=== PATIENT | male | born 1950 | race Caucasian/White ===

== ENCOUNTER 2017-07-05 21:21 | Inpatient (IN) | payer BC ==
[2017-07-05] MEDS ORDERED: NACL 0.9% 3 ML SYG IV (22:30)
[2017-07-05] MEDS ORDERED: DEXTROSE 50% 50 ML SYRINGE IV ×2 (23:45)
[2017-07-05] MEDS ORDERED: GLUCOSE GEL 15 GRAM TUBE BUCCAL (23:45)
[2017-07-05] MEDS ORDERED: GLUCAGON 1 MG INJ IM (23:45)
[2017-07-05] MEDS ORDERED: GLUCOSE GEL 15 GRAM TUBE PO ×2 (23:45)
[2017-07-06] MEDS ORDERED: INSULIN ASPART [NOVOLOG] 3 ML PEN SC ×4 (01:00→07:55)
[2017-07-06] MEDS: LEVETIRACETAM 250 MG TAB PO ×3 (01:08→12:49)
[2017-07-06] MEDS: SOD CHLORIDE 0.9% 1,000 ML IV ×2 (01:09→12:50)
[2017-07-06] MEDS ORDERED: ACCU-CHEK XX ×2 (02:00)
[2017-07-06] MEDS: ACCU-CHEK XX (02:00)
[2017-07-06] MEDS: INSULIN ASPART [NOVOLOG] 3 ML PEN SC ×3 (07:55→20:41)
[2017-07-06 08:58] LABS: ADD MAN DIFF? NO
[2017-07-06 09:07] LABS: WHITE BLOOD COUNT 6.5 10^3/ul (4.8-10.8)
[2017-07-06 09:07] LABS: BASOPHILS % 0.3 % (0.0-2.0); EOSINOPHILS # 0.1 10^3/ul (0.0-0.5); EOSINOPHILS % 0.8 % (0.0-7.0); HEMATOCRIT 35.4 % (42.0-52.0); LYMPHOCYTES # 1.7 10^3/ul (0.8-2.9); LYMPHOCYTES % 26.2 % (15.0-51.0); MEAN CORPUSCULAR HEMOGLOBIN 21.4 pg (29.0-33.0); MEAN CORPUSCULAR HGB CONC 31.1 g/dl (32.0-37.0); MEAN CORPUSCULAR VOLUME 68.9 fl (82.0-101.0); MONOCYTE # 0.5 10^3/ul (0.3-0.9); MONOCYTES % 7.8 % (0.0-11.0); NEUTROPHIL # 4.2 10^3/ul (1.6-7.5); NEUTROPHILS % 64.4 % (39.0-77.0); PLATELET COUNT 394 10^3/UL (140-415); RED BLOOD COUNT 5.14 10^6/ul (4.70-6.10); RED CELL DISTRIBUTION WIDTH 13.8 % (11.5-14.5)
[2017-07-06] MEDS: ASPIRIN 81 MG TAB NGT (09:13)
[2017-07-06] MEDS: THIAMINE 100 MG TAB PO (09:13)
[2017-07-06] MEDS: LISINOPRIL 5 MG TAB GTB (09:14)
[2017-07-06] MEDS: GABAPENTIN 300 MG CAP PO (09:14)
[2017-07-06] MEDS: FOLIC ACID 1 MG TAB PO (09:15)
[2017-07-06] MEDS: ALLOPURINOL 100 MG TAB GTB (09:15)
[2017-07-06] MEDS: METOPROLOL (XL) 25 MG TAB PO (09:15)
[2017-07-06 09:35] LABS: ANION GAP 12 (8-16); BLOOD UREA NITROGEN 13 mg/dl (7-20); CALCIUM 9.3 mg/dl (8.4-10.2); CARBON DIOXIDE 30 mmol/L (21-31); CHLORIDE 104 mmol/L (97-110); CREATININE 0.94 mg/dl (0.61-1.24); GLUCOSE 137 mg/dl (70-220); POTASSIUM 3.9 mmol/L (3.5-5.1); SODIUM 142 mmol/L (135-144)
[2017-07-06] MEDS ORDERED: GABAPENTIN 300 MG CAP PO (13:00)
[2017-07-06] MEDS: GABAPENTIN 100 MG CAP PO ×2 (13:01→20:37)
[2017-07-06 13:10] LABS: HEMOGLOBIN A1C 7.4 % (0-5.9)
[2017-07-06] MEDS: TAMSULOSIN (SR) 0.4 MG CAP PO (20:37)
[2017-07-06] MEDS: INSULIN GLARGINE [LANtus] 3 ML PEN SC (20:40)
[2017-07-06] MEDS: LEVETIRACETAM 500 MG TAB PO (20:42)
[2017-07-06] MEDS ORDERED: LEVETIRACETAM 250 MG TAB PO (21:00)
[2017-07-07] MEDS: ACCU-CHEK XX (02:00)
[2017-07-07] MEDS: THIAMINE 100 MG TAB PO (08:54)
[2017-07-07] MEDS: LEVETIRACETAM 500 MG TAB PO (08:54)
[2017-07-07] MEDS: ASPIRIN 81 MG TAB NGT (08:54)
[2017-07-07] MEDS: GABAPENTIN 100 MG CAP PO (08:55)
[2017-07-07] MEDS: FOLIC ACID 1 MG TAB PO (08:55)
[2017-07-07] MEDS: ALLOPURINOL 100 MG TAB GTB (08:55)
[2017-07-07] MEDS: LISINOPRIL 5 MG TAB GTB (08:56)
[2017-07-07] MEDS: METOPROLOL (XL) 25 MG TAB PO (08:57)
[2017-07-07] MEDS: INSULIN ASPART [NOVOLOG] 3 ML PEN SC (09:20)
== END 2017-07-07 12:09 | disposition home or self-care (01) | DRG 101 ==
LOC: TEL 21:21
DX: G40.909 Epilepsy, unspecified, not intractable, without status epilepticus (principal); I10 Essential (primary) hypertension; E11.9 Type 2 diabetes mellitus without complications; G47.33 Obstructive sleep apnea (adult) (pediatric); M10.9 Gout, unspecified; N40.0 Benign prostatic hyperplasia without lower urinary tract symptoms; M17.0 Bilateral primary osteoarthritis of knee
CPT/HCPCS: 70551; 80048; 80307; 82962; 83036; 85025